=== PATIENT | male | born 2005 | race Caucasian/White ===

== ENCOUNTER 2025-04-09 14:39 | Outpatient (CLI) | payer BC | END 2025-04-09 14:40 | disposition home or self-care (01) | LOC: SCSMRI 14:39 | PROVIDERS: ATTEND Orthopaedic Surgery | DX: S91.002A Unspecified open wound, left ankle, initial encounter (principal); R93.7 Abnormal findings on diagnostic imaging of other parts of musculoskeletal system; S82.55XA Nondisplaced fracture of medial malleolus of left tibia, initial encounter for closed fracture ==